=== PATIENT | male | born 1990 | race Caucasian/White ===

== ENCOUNTER 2017-01-22 19:22 | Emergency (ER) | payer OTHER ==
[~2017-01-22] VITALS: Ht 180.3 cm; Wt 93.0 kg
[2017-01-22 19:24] VITALS: BP 142/87
--- NOTE | 2017-01-22 19:44 | ED NECK/BACK PAIN COMPLAINT ---
History of Present Illness General Chief Complaint: Low Back Pain/Injury Stated Complaint: BACK PAIN Source: patient Exam Limitations: no limitations Vital Signs & Intake/Output Vital Signs & Intake/Output Vital Signs Date Time Temp Pulse Resp B/P B/P Pulse O2 O2 Flow FiO2 Mean Ox Delivery Rate 01/23 1924 98.7 62 18 142/87 98 Room Air Allergies Coded Allergies: No Known Allergies (01/22/17) Reconcile Medications Cyclobenzaprine HCl 10 MG TABLET 1 TAB PO QPM PRN MUSCLE RELAXATION Ketorolac Tromethamine 10 MG TABLET 1 TAB PO TID PRN PAIN Methylprednisolone. (Medrol) 4 MG TAB.DS.PK 1 DP PO AD INFLAMMATION 6 on day 1 then reduce by one tablet daily until gone Triage Note: 26 YO MALE TO TRIAGE C/O LOWER BACK PAIN. STATES PAIN HAS BEEN FOR ABOUT A YEAR BUT HAS BEEN GETTING WORSE. Triage Nurses Notes Reviewed? yes Onset: Abrupt Duration: constant Timing: recent history Location: paraspinous muscles Radiation: buttocks, upper legs, lower legs Context: turning/bending HPI: Patient is a 26-year-old male with a unremarkable past because he presents emergency room with a one year history of left-sided dull achy back pain however on Friday 3 days ago patient was practicing [employer] where he hurt his back, in which patient has been complaining of left-sided muscular back pain with intermittent radiation down his left lower extremities of pain. Patient has not taken any medications for symptoms. Patient was evaluated earlier today by [facility] where he received x-rays with unremarkable findings. Patient also has follow-up with [facility] and possible chiropractic and physical therapy. Patient was just concerned as his pain remains however again he has not taken any medications for symptoms. Denies any bowel or bladder incontinence or saddle paresthesia. Denies any nausea vomiting abdominal plain or flank pain (DARRIAN PATEL) Past History Travel History Traveled to [place] past 21 day No Medical History Any Pertinent Medical History? none Neurological: NONE EENT: NONE Cardiovascular: NONE Respiratory: NONE Gastrointestinal: NONE Hepatic: NONE Renal: NONE Musculoskeletal: NONE Psychiatric: NONE Endocrine: NONE Blood Disorders: NONE Cancer(s): NONE [employer] INSURANCE/Reproductive: NONE Surgical History Surgical History: non-contributory Psychosocial History What is your primary language [place] Tobacco Use: Never used Family History Hx Contributory? No (DARRIAN PATEL) Review of Systems Review of Systems Constitutional: Reports: no symptoms. Eyes: Reports: no symptoms. Ears, Nose, Throat, Mouth: Reports: no symptoms. Respiratory: Reports: no symptoms. Cardiovascular: Reports: no symptoms. Gastrointestinal/Abdominal: Reports: no symptoms. Musculoskeletal: Reports: see HPI, back pain. Skin: Reports: no symptoms. Neurological/Psychological: Reports: no symptoms. All Other Systems: Reviewed and Negative (DARRIAN PATEL) Physical Exam Physical Exam General Appearance: no apparent distress, alert, comfortable Neck: normal inspection, supple, full range of motion Straight Leg Raising: Left: Pain at ____ degrees (60). Comments: Well-developed well-nourished person in no acute distress HEENT: Normal EENT exam Neck: Supple, no lymphadenopathy, normal range of motion without pain or tenderness Back: Normal inspection, left lateral muscular point tenderness noted, no central spinous tenderness, decreased active range of motion noted Abdomen: Soft, nontender nondistended, no appreciable organomegaly. Normal bowel sounds. No ascites Extremity: Bilateral lower extremity myotomes dermatomes DTRs intact Neuro: Alert oriented x3, motor sensory normal, Skin: No appreciable rash on exposed skin, skin is warm and dry. Psych: Mood and affect is normal, memory and judgment is normal. (DARRIAN PATEL) Progress Differential Diagnosis: AAA, C spine injury, carotid dissection, cauda equina syn, herniated disc, myofascial strain, pyelo/UTI, sciatica, spinal cord inj, thoracic outlet syn, T/L spine injury, ureterolithiasis Plan of Care: Current Medications Sig/Bandar Start time Last Medication Dose Stop Time Status Admin Ketorolac 30 MG ONCE ONE 01/23 2000 UNVr Tromethamine 01/22 2001 (Toradol) NO CONCERN OF CUADA EQUINA SYNDROME Patient has intact bilateral lower extremity neurovascular on exam. Patient was strongly advised to follow up with established [facility] No abdominal pain no concerns of kidney stone (DARRIAN PATEL) Departure Departure Disposition: HOME OR SELF CARE Condition: Stable Clinical Impression Primary Impression: Low back pain Secondary Impressions: Lumbar radiculopathy Referrals: PATIENT HAS NO PRIMARY CARE DR (PCP/Family) Additional Instructions: As discussed follow-up with your established orthopedic doctor DIRECTED. Begin icing the area directly 20 minutes every 2 hours. Begin the prescription of ketorolac for pain and inflammation, begin the PRESCRIPTION of cyclobenzaprine for muscle relaxation and begin the prescription of Medrol Dosepak for inflammation. Prescription is waiting at [facility]. Activity as tolerated. If symptoms worsen return to emergency room Departure Forms: Customer Survey General Discharge Information Prescriptions: Current Visit Scripts Ketorolac Tromethamine 1 TAB PO TID PRN PAIN #15 TAB Cyclobenzaprine HCl 1 TAB PO QPM PRN MUSCLE RELAXATION #10 TAB Methylprednisolone. (Medrol) 1 DP PO AD #1 DP 6 on day 1 then reduce by one tablet daily until gone (DARRIAN PATEL) PA/[employer]R [employer]IVER Co-Sign Statement Statement: ED Attending supervision documentation- [] I saw and evaluated the patient. I have also reviewed all the pertinent lab results and diagnostic results. I agree with the findings and the plan of care as documented in the PA's/[employer]'s documentation. [x] I have reviewed the ED Record and agree with the PA's/[employer] DRIVER's documentation. [] Additions or exceptions (if any) to the PAs/[employer] RE[employer]IG[employer] TR[employer] DRIVER's note and plan are summarized below: [] (HUSSEIN DELGADO DO)
[2017-01-22] MEDS ORDERED: MEDROL4 M2 PO (20:02)
[2017-01-22] MEDS ORDERED: CYCLOBENZAPRINE10 M1 PO (20:02)
[2017-01-22] MEDS ORDERED: KETOROLAC TROME10 M1 PO (20:02)
== END 2017-01-22 20:10 ==
LOC: ERH 19:22
DX: M54.5 Low back pain (principal); M54.16 Radiculopathy, lumbar region
CPT/HCPCS: 96372; J1885